=== PATIENT | male | born 1965 | race Caucasian/White ===

== ENCOUNTER 2017-06-11 20:00 | Inpatient (IN) | payer MEDICARE ==
[~2017-06-11] VITALS: Ht 162.6 cm; Wt 67.1 kg
--- NOTE | ~2017-06-11 | PA ---
Unit #: [id number] #: [id number] Patient: LYLE BUCKLEY [id number] [place] [address] [id number] MR#: [id number] NAME: LYLE BUCKLEY ROOM: P175 Age: 52 Sex: M Admission Date: 06/11/2017 : 1965 Date of Assessment: 06/12/2017 Attending Physician: Jeyson Holman M.D. Admitting Physician: Jeyson Holman M.D. Primary Care Physician: Ilana Johnson M.D. PSYCHIATRIC ASSESSMENT IDENTIFYING INFORMATION The patient is a 52-year-old white male admitted with heroin addiction and some suicidal thinking. INFORMANT(S) Patient and chart. RELIABILITY Fair. CHIEF COMPLAINT None given. HISTORY OF PRESENT ILLNESS The patient is a 52-year-old white male last admitted to this facility in 2014. He is readmitted reporting abuse of intravenous heroin. The patient also reports history of severe chronic pain, depressed mood and hopelessness. The patient reports that he lives with his sister. It was recommended that he come to this facility by his landlord. The patient reports that he has significant physical issues including triple bypass surgery, abdominal hernia repair and degenerative disc disease. The patient also reports a history of financial stressors. Patient has reported feeling hopeless and has reported difficulty with attendance to activities of daily living. Patient reported active suicidal thoughts but states that he is unable to act on these because of his yarsanism thinking. He denies recent changes in sleep or appetite. He is not presently followed by a psychiatrist and is on no psychotropic medications. PAST PSYCHIATRIC HISTORY As above. FAMILY HISTORY Noncontributory. SOCIAL HISTORY The patient lives with his sister. He is disabled by his multiple physical problems. He reports intravenous heroin use as noted previously but denies abuse of other psychoactive substances. MEDICAL HISTORY The patient suffers from hypertension, diabetes mellitus and degenerative disc disease and chronic pain as well as coronary artery disease. Unit #: [id number] #: [id number] Patient: LYLE BUCKLEY MEDICATION HISTORY 1. Lisinopril. 2. Metformin. 3. Lantus. ALLERGIES None. MENTAL STATUS EXAM At this time, reveals the patient to be a well-developed, well-nourished disheveled white male appearing his stated age. He is in significant physical distress during evaluation. He is awake, alert and oriented in all spheres. His mood is mildly dysphoric. His affect constricted. Speech is generally relevant and coherent. There are no gross deficits in memory or cognition noted. Intelligence is judged to be in the average range based on fund of knowledge. The patient is cooperative throughout the interview. He is currently reporting positive suicidal ideation. He denies homicidal ideation. He denies any psychotic symptoms. His judgement and insight appear to be reasonably intact. ASSETS AND LIABILITIES Patient's assets to be assessed. Liabilities, lack of resources. ADMITTING DIAGNOSES 1. Opioid use disorder. 2. Dysthymic disorder. 3. Degenerative disc disease. 4. Coronary artery disease. 5. Diabetes mellitus. 6. History of abdominal hernia repair. 7. Chronic pain. PSYCHIATRIC PLAN/TREATMENT GOALS The patient remains hospitalized for safety and stabilization. His request for initiation of "Xanax and Percocet" is politely declined during today's interview. I will begin aggressively dosed ibuprofen for chronic pain and will begin the patient on Effexor XR 37.5 mg daily to address complaints of depressed mood and anxiety as well as chronic pain. Routine detoxification protocol for opioids has been put in place and suicide precautions likewise in place. ESTIMATED LENGTH OF STAY Three to five days. Dictated by... Jeyson Holman M.D. KONRAD/clinton TD: 06/12/2017 13:03 JOB #: [id number] Unit #: [id number] #: [id number] Patient: LYLE BUCKLEY PSYCHIATRIC ASSESSMENT Page 1 of 1 X Jeyson Holman MD PSYCHIATRIC ASSESSMENT
--- NOTE | ~2017-06-11 | PN ---
Unit #: [id number] #: [id number] Patient: LYLE BUCKLEY [id number] [facility] [address] [place] [address] [id number] I MR#: [id number] NAME: LYLE BUCKLEY ROOM: [facility] Age: 52 Sex: M Admission Date: 06/11/2017 : 1965 Attending Physician: Jeyson Holman M.D. Admitting Physician: Jeyson Holman M.D. Primary Care Physician: Malu Romo PROGRESS NOTES DATE 06/14/2017 DISCUSSION The patient continues to complain of significant symptoms of alcohol withdrawal and we will continue his current detoxification protocol. Dictated by... Jeyson Holman M.D. CB/reese TD: 06/15/2017 06:14 JOB #: [id number] [facility] PROGRESS NOTES Page 1 of 1 X Jeyson Holman MD X PROGRESS NOTE
--- NOTE | ~2017-06-11 | DS ---
Unit #: [id number] #: [id number] Patient: LYLE BUCKLEY [id number] [place] [address] [id number] MR#: [id number] NAME: LYLE BUCKLEY ROOM: 75 Age: 52 Sex: M Admission Date: 06/11/2017 : 1965 Discharge Date: 06/16/2017 Attending Physician: Jeyson Holman M.D. Primary Care Physician: Ilana Johnson M.D. DISCHARGE SUMMARY REASON FOR ADMISSION The patient is a 52-year-old white male, admitted for alcohol detox. HOSPITAL COURSE The patient was admitted to the [facility] unit and placed on routine detoxification protocol for alcohol. He was continued on previously prescribed sliding scale insulin as well as Levemir, Glucophage, and Zestril. Requip was added given the patient's complaints of restless legs. The patient's detox was uneventful one and he showed significant improvement in his symptoms as his brief stay in the hospital progressed. By 06/16/2017, the patient requested discharge and it was so ordered. FINAL DIAGNOSES Alcohol use disorder, hypertension, diabetes mellitus, restless legs syndrome. DISPOSITION ON DISCHARGE The patient is discharged on the following medications; Zestril 5 mg once daily for hypertension, Glucophage 1000 mg once daily for diabetic management, Levemir 20 units b.i.d. for diabetic management, NovoLog sliding scale t.i.d. with meals for diabetic management, Requip 0.25 mg nightly for restless legs syndrome. DISCHARGE INSTRUCTIONS No dietary or physical restrictions were placed on the patient at the time of discharge. FOLLOWUP Followup will take place through the auspices of community mental health resources. PROGNOSIS The patient's prognosis is considered fair. Dictated by... Jeyson Holman M.D. CB/man TD: 06/16/2017 22:57 JOB #: [id number] Unit #: [id number] #: [id number] Patient: LYLE BUCKLEY DISCHARGE SUMMARY Page 1 of 1 X Jeyson Holman MD X DISCHARGE SUMMARY
--- NOTE | ~2017-06-11 | PN ---
Unit #: [id number] #: [id number] Patient: LYLE BUCKLEY [id number] [facility] [address] [place] [address] [id number] MR#: [id number] NAME: LYLE BUCKLEY ROOM: [facility] Age: 52 Sex: M Admission Date: 06/11/2017 : 1965 Attending Physician: Jeyson Holman M.D. Admitting Physician: Jeyson Holman M.D. Primary Care Physician: Malu Romo PROGRESS NOTES DATE 06/14/2017 DISCUSSION The patient's detox continues uneventfully. We continue to work on what disposition will be most appropriate for the patient following discharge. Dictated by... Jeyson Holman M.D. CB/bzg TD: 06/15/2017 13:00 JOB #: [id number] [facility] PROGRESS NOTES Page 1 of 1 X Jeyson Holman MD X PROGRESS NOTE
--- NOTE | ~2017-06-11 | HP ---
Unit #: [id number] #: [id number] Patient: LYLE BUCKLEY [id number] [place] [address] [id number] I MR#: [id number] NAME: LYLE BUCKLEY ROOM: P175 Age: 52 Sex: M Admission Date: 06/11/2017 : 1965 Attending Physician: Jeyson Holman M.D. Admitting Physician: Jeyson Holman M.D. Primary Care Physician: Ilana Johnson M.D. HISTORY AND PHYSICAL HISTORY OF PRESENT ILLNESS Lyle is a 52-year-old male admitted on 06/11/2017 to [facility] for detox from heroin. He is a poor historian so information is taken from records and exam. PAST MEDICAL HISTORY 1. Type 2 diabetes. 2. Restless leg syndrome. 3. Heart disease. PAST SURGICAL HISTORY 1. Back surgery x2. 2. Triple bypass. 3. Abdominal surgery, he is unsure why. ALLERGIES No known drug allergies. SOCIAL HISTORY Smokes 1 pack of cigarettes daily. Daily use of heroin. Denies any alcohol use. He is currently single and living alone in an apartment. FAMILY HISTORY Noncontributory. REVIEW OF SYSTEMS CONSTITUTIONAL: No fever or chills. HEENT: Denies any sore throat, ear pain or runny nose. CARDIOVASCULAR: Denies chest pain, irregular heart rhythm or palpitations. CHEST: Denies shortness of breath or cough. No hemoptysis. GASTROINTESTINAL: Denies nausea, vomiting, diarrhea or chronic constipation. ENDOCRINE: Denies history of increased thirst or urination. No recent significant weight loss or gain. GENITOURINARY: Denies dysuria, frequency, or hematuria. SKIN: Denies any rashes. HEMATOLOGIC: Denies history of increased bleeding or bruising. MUSCULOSKELETAL: Denies any hot, swollen joints. No generalized muscle pain. NEUROLOGIC: Denies problems with vision or speech. No frequent, severe headaches. No numbness, tingling or weakness in any extremities. Denies loss of bladder or bowel control. Unit #: [id number] #: [id number] Patient: LYLE BUCKLEY CURRENT MEDICATIONS 1. Lisinopril. 2. Metformin. 3. Lantus. PHYSICAL EXAMINATION GENERAL: Alert, oriented, in no acute distress. VITAL SIGNS: Blood pressure 144/84, heart rate 54, respirations 16, temperature 97.8. HEIGHT: 5 feet 7. WEIGHT: 148 pounds. SKIN: Warm and dry without rash or lesion. HEENT: Normocephalic. TMs not viewed. Oral and nasal passages clear. Conjunctivae clear. PERRLA. EOMs intact. NECK: Supple without lymphadenopathy or thyromegaly. HEART: Regular rate and rhythm without murmur. LUNGS: Clear. ABDOMEN: Soft, nontender, without masses or hepatosplenomegaly. : Not done. EXTREMITIES: No evidence of cyanosis, clubbing or edema. Moves all without focal deficit. NEUROLOGICAL: Grossly within normal limits. Cranial Nerves: II: Visual bonner are intact. III, IV AND : Extraocular movements are intact. Pupils are equal, round and reactive to light. V: Facial sensation is grossly normal. VII: Facial movements and expression are normal. VIII: Auditory acuity grossly intact. IX, X: Uvula is midline. Phonation is normal. XI: Patient shrugs shoulders and turns head normally. XII: Tongue protrudes in the midline. Sensory and Motor Function: Sensory and motor sensation is grossly normal. Motor: moves all extremities well. Coordination: Gait is normal. Deep Tendon Reflexes: Intact. IMPRESSION 1. Psychiatric admission. 2. Type 2 diabetes. 3. Restless leg syndrome. 4. Heart disease. RECOMMENDATIONS PSYCHIATRIC: Per psychiatrist. MEDICAL: No contraindication to participate in facility's activities. MEDICAL PROGNOSIS Good. MEDICAL CONDITION Stable. Dictated by... Irma Harmon/clinton Unit #: [id number] #: [id number] Patient: LYLE BUCKLEY TD: 06/12/2017 16:22 JOB #: [id number] HISTORY AND PHYSICAL Page 1 of 1 X AKHIL WELCH APRN X HISTORY AND PHYSICAL
--- NOTE | ~2017-06-11 | PN ---
Unit #: [id number] #: [id number] Patient: LYLE BUCKLEY [id number] [facility] [address] [place] [address] [id number] I MR#: [id number] NAME: LYLE BUCKLEY ROOM: [facility] Age: 52 Sex: M Admission Date: 06/11/2017 : 1965 Attending Physician: Jeyson Holman M.D. Admitting Physician: Jeyson Holman M.D. Primary Care Physician: Malu Romo PROGRESS NOTES DATE 06/13/2017 DISCUSSION The patient is complaining of poor sleep and "restless leg syndrome". I will begin Requip 0.25 mg at 8 p.m. in hopes of addressing this symptom. Otherwise, the patient complains of poor sleep and states that he is "feeling terrible" related to his withdrawal. Dictated by... Jeyson Holman M.D. CB/franck TD: 06/14/2017 00:25 JOB #: [id number] [facility] PROGRESS NOTES Page 1 of 1 X Jeyson Holman MD X PROGRESS NOTE
--- NOTE | ~2017-06-11 | CO ---
Unit #: [id number] #: [id number] Patient: LYLE BUCKLEY [id number] [place] [address] [id number] I MR#: [id number] NAME: LYLE BUCKLEY ROOM: P175 Age: 52 Sex: M Admission Date: 06/11/2017 : 1965 Attending Physician: Jeyson Holman M.D. Primary Care Physician: Ilana Johnson M.D. Consultation Date: 06/12/2017 CONSULTATION REPORT HISTORY OF PRESENT ILLNESS Lyle is a 52-year-old male, who has a history of type 2 diabetes. He reports taking metformin and Lantus at home. His Lantus is scheduled b.i.d., however, at home he only takes at bedtime. He also has multiple sores on his body. He says he first noticed these sores several years ago. He does not have any itching or pain in the sores. They get worse at times and spread to his arms, legs, and back. Currently, he only has a few sores on his back and his arms. He reports that he was treated for scabies several years ago and the sores got better, but now he has sores again. He had been seeing Dr. Jc, but does not have a primary care provider any longer and does not want to see one. The patient's sores are bothering him. He has no other complaints. PHYSICAL EXAMINATION CARDIAC: Regular rate and rhythm. No murmurs, gallops, or rubs. RESPIRATORY: Clear to auscultation bilaterally. SKIN: Multiple lesions on arms and legs that do appear to be somewhat of psoriasis. ASSESSMENT AND PLAN 1. Type 2 diabetes. We will restart Lantus 20 units q.h.s. and Accu-Cheks once daily fasting. Please notify, if blood sugars are greater than 200. 2. Skin lesions, these are likely psoriatic. The patient was encouraged to follow up with his primary care provider. Dictated by... Irma Harmon/man TD: 06/13/2017 03:08 JOB #: [id number] Unit #: [id number] #: [id number] Patient: INALYLE CONSULTATION REPORT Page 1 of 1 X AKHIL WELCH APRN CONSULTATION REPORT
--- NOTE | ~2017-06-11 | PN ---
Unit #: [id number] #: [id number] Patient: LYLE BUCKLEY [id number] [facility] [address] [place] [address] [id number] MR#: [id number] NAME: LYLE BUCKLEY ROOM: 75 Age: 52 Sex: M Admission Date: 06/11/2017 : 1965 Attending Physician: Jeyson Holman M.D. Admitting Physician: Jeyson Holman M.D. Primary Care Physician: Malu Romo PROGRESS NOTES DATE 06/15/2017 DISCUSSION The patient offers no new complaints when seen today. He states that he has spoken with his sister and maybe be able to live with her following his discharge from the hospital should he sustain progress discharge should take place as early as tomorrow. Dictated by... Jeyson Holman M.D. CB/franck TD: 06/15/2017 22:19 JOB #: [id number] [facility] PROGRESS NOTES Page 1 of 1 X Jeyson Holmna MD PROGRESS NOTE
[~2017-06-11 20:00] MED LIST: ALPRAZOLAM PO; ASPIRIN PO; BACTRIM DS TABL1 TAB PO; FLEXERIL PO; KEFLEX PO; LIPITOR PO; LISINOPRIL PO; LOPID600 MG PO; LORTAB 7.5-5001 TAB PO; MEDROL PO; MULTIVITAMIN W-1 TAB PO; OXYCONTIN PO; TOPROL XL PO; ULTRAM PO; VICODIN 5/500 T1 TAB PO; ZOCOR PO
[2017-06-13 11:18] LABS: BILIRUBIN,TOTAL 0.5 mg/dL (0.2-2.0); CALCIUM SERUM 8.4 mg/dL (8.4-10.2); POTASSIUM 4.1 mmol/L (3.5-5.1); PROTEIN TOTAL SERUM 5.9 g/dL (6.0-8.3)
[2017-06-13 12:38] LABS: BASOPHIL% 0.5 % (0-2.5); EOSINOPHIL# 0.1 X10e3 (0-0.7); EOSINOPHIL% 1.2 % (0.0-7.0); HEMATOCRIT 35.2 % (38.0-50.0); HEMOGLOBIN 12.1 gm/dL (13.0-16.0); LYMPHOCYTE# 1.6 X10e3 (1.0-3.5); LYMPHOCYTE% 18.7 % (17.0-45.0); MEAN CELL VOLUME 89.4 FL (83-96); MEAN CORPUSCULAR HEMOGLOBIN 30.6 PG (28-34); MEAN CORPUSCULAR HGB CONC 34.2 g/dL (30-36); MONOCYTE# 0.6 X10e3 (0-1.0); MONOCYTE% 6.3 % (3.0-12.0); NEUTROPHIL# 6.4 X10e3 (1.5-7.1); NEUTROPHIL% 73.3 % (40-75); PLATELET COUNT 182 X10e3 (140-420); RED BLOOD COUNT 3.94 X10e (3.90-5.60); RED CELL DISTRIBUTION WIDTH 12.9 % (11.0-15.5); WHITE BLOOD COUNT 8.8 X10e3 (4.0-10.5)
[2017-06-13 12:46] LABS: DIFF IND NO
[2017-06-14 10:15] LABS: URINE APPEARANCE CLOUDY; URINE BILIRUBIN NEG (NEG); URINE BLOOD TRACE (NEG); URINE COLOR YELLOW; URINE GLUCOSE 250 MG/DL (NEG); URINE KETONE NEG (NEG); URINE LEUKOCYTE ESTERASE 3+ (NEG); URINE NITRATE NEG (NEG); URINE PH 6.5 (5-8); URINE PROTEIN NEG (NEG); URINE SPECIFIC GRAVITY 1.006 (1.003-1.035); URINE UROBILINOGEN 0.2 MG/DL (NEG)
[2017-06-14 10:17] LABS: URBCS1 AUWI 0-2 /[HPF] (0-2); URINE BACTERIA AUWI 4+ (NEGATIVE); URINE SQUAMOUS EPITHELIAL CELL NONE SEEN /[HPF]; UWBCS1 AUWI INNUM (0-5)
[2017-06-14 11:40] LABS: AMPHETAMINE NEG (NEG); BARBITURATES NEG (NEG); BENZODIAZEPINES NEG (NEG); COCAINE NEG (NEG); MARIJUANA NEG (NEG); OPIATES NEG (NEG); TRICYCLIC ANTIDEPRESSANTS NEG (NEG); U METHADONE NEG (NEG)
== END 2017-06-16 15:45 | DRG 897 ==
LOC: P1E 23:46
PROVIDERS: Specialist
PROC: HZ2ZZZZ Detoxification Services for Substance Abuse Treatment (ICD-10-PCS; principal; 2017-06-12)
DX: F10.10 Alcohol abuse, uncomplicated (principal); F11.10 Opioid abuse, uncomplicated; E11.9 Type 2 diabetes mellitus without complications; F34.1 Dysthymic disorder; I25.10 Atherosclerotic heart disease of native coronary artery without angina pectoris; G89.29 Other chronic pain; Z79.4 Long term (current) use of insulin; L40.9 Psoriasis, unspecified; G25.81 Restless legs syndrome
CPT/HCPCS: 80053; 80307; 81003; 82947; 85025; 86592